=== PATIENT | female | born 1955 | race Caucasian/White ===

== ENCOUNTER 2022-09-20 07:49 | Day surgery (SDC) | payer MEDICARE, OTHER ==
[~2022-09-20 07:49] MED LIST: ALPRAZolam 0.25 MG TAB PO PRN; ALPRAZolam 0.5 MG TAB PO PRN; ASPIRIN 325 MG TAB PO STA; ATORVASTATIN 80 MG TAB PO STA; HEPARIN SODIUM,PORCINE 10,000 UNIT in SODIUM CHLORIDE 0.9% 1,000 ML IRRIGATION PRN; HEPARIN SODIUM,PORCINE 2,500 UNIT in SODIUM CHLORIDE 0.9% 250 ML IRRIGATION PRN; NITROGLYCERIN SL TABS 0.4 MG TAB SUBLINGUAL PRN
[2022-09-20] MEDS ORDERED: SODIUM CHLORIDE 0.9% 1,000 ML IV ONE (08:05)
[2022-09-20] MEDS ORDERED: hydrALAZINE HCL 20 MG/ML 1 ML VIAL ONE ×2 (08:14→10:16)
[2022-09-20] MEDS ORDERED: VERAPAMIL 2.5 MG/ML 2 ML AMP ONE (09:41)
[2022-09-20] MEDS ORDERED: LIDOCAINE 1% INJ 10MG/ML (5 ML VIAL-PF) SQ ONE (09:50)
[2022-09-20] MEDS ORDERED: MIDAZOLAM 2 MG/2 ML VIAL IV ONE (09:51)
[2022-09-20] MEDS ORDERED: VERAPAMIL SYRINGE (5 MG/10 ML) INTRAARTER ONE (09:51)
[2022-09-20] MEDS ORDERED: HEPARIN SODIUM 1,000 UN/ML (10ML VL) ONE (09:52)
[2022-09-20] MEDS: HEPARIN SODIUM 1,000 UN/ML (10ML VL) IV ONE ×3 (09:54→10:19)
[2022-09-20] MEDS ORDERED: fentaNYL (PF) 50 MCG/ML 2 ML AMP ONE (10:01)
[2022-09-20] MEDS: fentaNYL (PF) 50 MCG/ML 2 ML AMP IV ONE ×2 (10:06→10:12)
[2022-09-20] MEDS ORDERED: CLOPIDOGREL 75 MG TAB ONE (10:15)
[2022-09-20] MEDS ORDERED: NITROGLYCERIN 1000MCG/10ML SYRINGE INTRACORON ONE (10:18)
[2022-09-20] MEDS ORDERED: HYDROmorphone 0.5 MG/0.5 ML SYRINGE IVP ONE (10:19)
[2022-09-20] MEDS ORDERED: IOPAMIDOL-370 125ML BTL PO ONE (10:19)
[2022-09-20] MEDS ORDERED: CLOPIDOGREL 75 MG TAB PO ONE (10:19)
[2022-09-20] MEDS ORDERED: ZOLPIDEM 5 MG TAB PO PRN (10:27)
[2022-09-20] MEDS ORDERED: MAG HYDROX/AL HYDROX/SIMETH 30 ML CUP PO PRN (10:27)
[2022-09-20] MEDS ORDERED: RX INFO: IV CONTRAST WAS GIVEN 1 EACH MISC MISCELLANE PRN (10:27)
[2022-09-20] MEDS ORDERED: NITROGLYCERIN SL TABS 0.4 MG TAB SUBLINGUAL PRN (10:27)
[2022-09-20] MEDS ORDERED: ATROPINE SULFATE 0.1 MG/ML 10ML SYRINGE IV PRN (10:27)
[2022-09-20] MEDS ORDERED: SODIUM CHLORIDE 0.9% 1,000 ML in EMPTY BAG 1 BAG IV SCH (10:30)
--- NOTE | 2022-09-20 10:34 | P.PCN ---
Date of Procedure: 09/20/22 Operative Findings: CARDIAC CATHETERIZATION AND PERCUTANEOUS CORONARY INTERVENTION PERFORMING PHYSICIAN: Nigel Salomon MD, VI PROCEDURE PERFORMED: 1. Selective right and left coronary angiogram 2. Successful stenting of proximal LAD using 2.25 x 12 mm Xience JUAN with an excellent angiographic results INDICATION: This is a 67-year-old gentleman with hypertension and dyslipidemia was exp eriencing chest discomfort and underwent a stress test came in to be abnormal. COMPLICATION: None APPROACH: Right radial artery LEVEL OF SEDATION: Moderate with the sedation time off 31 minutes PROCEDURE DESCRIPTION: After obtaining an informed consent the patient was brought to the cardiac home performance laborer. The right radial artery was cannulated using micropuncture technique, the micropuncture wire passed easily then I placed a 6-Kiswahili sheath at the right radial artery. After that I did give the patient 2 mg of verapamil intra- arterial and initially 5000 use of heparin and intravenous and subsequently additional 1000 units of heparin given with continuous ACT monitoring. Selective right and left coronary angiogram performed using JR4 and JL 3.5 catheters. After that I did intervene on the left anterior descending artery SELECTIVE CORONARY ANGIOGRAM: The right coronary artery: Large caliber vessel and a dominant vessel. The RCA is calcified with intermediate lesion involving the midportion appears to be in the range of 30- 40%. Left main: His calcified with mild disease distally appeared to be in the range of 20-30% The left circumflex: Large caliber vessel nondominant vessel. The LCx appears to have [id number] disease mostly involving the first obtuse marginal branch of the left circumflex. The left anterior descending artery: Large caliber vessel. The proximal LAD appeared to have a lesion in the range of 80% by the bifurcation of a septal child nutrition assistant branch. The distal LAD has another lesion appears to be in the range of 80%. The LAD at that point become 2 mm diameter vessel only. The LAD gives rise into a large diagonal branch which appears to have mild disease only. PCI OF THE LAD: Anticoagulation was initiated using heparin with continuous ACT monitoring. I did engage the left main using JL 3.5 guiding catheter. I did wire it using a run-through wire attempting advancing intravascular ultrasound catheter was unsuccessful. Subsequently I did a predilatation using 2 mm balloon before I deployed 2.25 x 12 mm balloon were the balloon was positioned under fluoroscopy guidance and deployed under its nominal pressure. The following angiogram showed excellent angiographic results and the procedure was completed was no complication CONCLUSION: Severe disease involving the proximal LAD. I did perform successful stenting of the proximal LAD. Severe disease involving the apical LAD as well as Mild disease involving the distal left main coronary artery POSTPROCEDURE MANAGEMENT: 1. Dual antiplatelet therapy using aspirin and Plavix for 12 month 2. Aggressive cholesterol control 3. Follow-up with the patient
[2022-09-20] MEDS ORDERED: HYDROcodone/APAP 10-325MG 1 EACH TAB ONE (11:28)
[2022-09-20 14:37] VITALS: BMI 29.5
[2022-09-20] MEDS: SODIUM CHLORIDE 0.9% 1,000 ML in EMPTY BAG 1 BAG IV SCH ×2 (18:03→19:34)
[2022-09-20] MEDS ORDERED: ATORVASTATIN 80 MG TAB PO SCH (21:00)
[2022-09-21 04:49] VITALS: RESP 16
[2022-09-21] MEDS ORDERED: LEVOTHYROXINE 112 MCG TAB PO SCH (06:30)
--- NOTE | 2022-09-21 07:55 | P.DS ---
Providers Attending physician: Nigel Salomon Consults: 09/20/22 10:27 Consult Physician Routine Consulting Provider: [facility] Consult Reason/Comments: Post Interventional Patient Do you want consulting provider notified?: Already Contacted Primary care physician: Dillon Mcknight [place] Hospital Course: The patient is a pleasant 67-year-old female patient was admitted to the hospital yesterday and underwent a heart catheterization and stenting of the left anterior descending artery with a good angiographic results. The patient was seen and evaluated this morning. She is asymptomatic and she is hemodynamically stable beside the pressure being elevated. She is going to be discharged home on dual antiplatelet therapy along with intermediate to high intensity statin and because of her pressure remains elevated and currently on losartan I'm going to add hydrochlorothiazide to the current medical regimen. The patient will be seen in the office in a week. Plan - Discharge Summary Discharge Rx Participant: No New Discharge Prescriptions: New Atorvastatin Calcium [Lipitor] 40 mg PO DAILY #90 tab hydroCHLOROthiazide 25 mg PO DAILY #90 tablet Clopidogrel [Plavix] 75 mg PO DAILY #90 tablet Continue Famotidine [Pepcid] 20 mg PO DAILY Aspirin 81 mg PO DAILY atenoloL [Tenormin] 50 mg PO DAILY Losartan Potassium 100 mg PO DAILY Levothyroxine Sodium [Synthroid] 112 mcg PO DAILY Discharge Medication List Aspirin 81 mg PO DAILY 09/18/22 [History] Famotidine [Pepcid] 20 mg PO DAILY 09/18/22 [History] Levothyroxine Sodium [Synthroid] 112 mcg PO DAILY 09/18/22 [History] Losartan Potassium 100 mg PO DAILY 09/18/22 [History] atenoloL [Tenormin] 50 mg PO DAILY 09/18/22 [History] Atorvastatin Calcium [Lipitor] 40 mg PO DAILY #90 tab 09/21/22 [Rx] Clopidogrel [Plavix] 75 mg PO DAILY #90 tablet 09/21/22 [Rx] hydroCHLOROthiazide 25 mg PO DAILY #90 tablet 09/21/22 [Rx] Follow up Appointment(s)/Referral(s): Nigel Salomon MD [STAFF PHYSICIAN] - 1 Week
[2022-09-21 08:28] VITALS: BP 189/87; PULSE 67; TEMP 98.2
[2022-09-21] MEDS ORDERED: LOSARTAN 50 MG TAB PO SCH (09:00)
[2022-09-21] MEDS ORDERED: CLOPIDOGREL 75 MG TAB PO SCH (09:00)
[2022-09-21] MEDS ORDERED: ASPIRIN 81 MG PO SCH (09:00)
[2022-09-21] MEDS ORDERED: FAMOTIDINE 20 MG TAB PO SCH (09:00)
[2022-09-21] MEDS ORDERED: atenoloL 50 MG TAB PO SCH (09:00)
[2022-09-21 09:38] LABS: African American GFR (CKD) >90 (>60 ml/min/1.73 sqM); Non-African American GFR(CKD) 85 (>60 ml/min/1.73 sqM)
== END 2022-09-21 09:48 | disposition home or self-care (01) ==
LOC: CATHCVL 07:49 → 6NMEDSUR 10:21 → CATHCVL 09-21 09:48
PROVIDERS: ATTEND Internal Medicine Interventional Cardiology
DX: I25.10 Atherosclerotic heart disease of native coronary artery without angina pectoris (principal); R07.89 Other chest pain; I10 Essential (primary) hypertension; E78.5 Hyperlipidemia, unspecified; Z82.49 Family history of ischemic heart disease and other diseases of the circulatory system; Z79.899 Other long term (current) drug therapy
CPT/HCPCS: 93454; 82565; C9600; C1887; C1769 ×2; C1894; C1725; C1753; C1874; J2250; J0360; J2001; J3010; J1644; J1170; Q9967

== ENCOUNTER → 2024-03-09 | Outpatient (CLI) | payer MEDICARE, OTHER ==
[2024-03-09 10:28] LABS: Basophils % (A) 1 %; Eosinophils # (A) 0.1 k/uL (0-0.7); Eosinophils % (A) 1 %; HCT 39.1 % (34.0-46.0); Lymphocytes # (A) 1.4 k/uL (1.0-4.8); Lymphocytes % (A) 22 %; MCH 30.6 pg (25.0-35.0); MCHC 33.1 g/dL (31.0-37.0); MCV 92.5 fL (80.0-100.0); Mean Platelet Volume 7.2; Monocytes # (A) 0.3 k/uL (0-1.0); Monocytes % (A) 5 %; Neutrophils # (A) 4.1 k/uL (1.3-7.7); Neutrophils % (A) 68 %; Platelet Count 293 k/uL (150-450); RBC 4.23 m/uL (3.80-5.40); RDW 13.1 % (11.5-15.5); WBC 6.1 k/uL (3.8-10.6)
[2024-03-09 10:40] LABS: ALT 21 U/L (4-34); AST 23 U/L (14-36); African American GFR (CKD) 76 (>60 ml/min/1.73 sqM); Albumin 4.6 g/dL (3.5-5.0); Albumin/Globulin Ratio 1.6; Alkaline Phosphatase 85 U/L (38-126); Anion Gap 6 mmol/L; Blood Urea Nitrogen 19 mg/dL (7-17); Calcium 8.2 mg/dL (8.4-10.2); Carbon Dioxide 30 mmol/L (22-30); Chloride 102 mmol/L (98-107); Creatine Kinase 145 U/L (30-135); Globulin 2.9 g/dL; Glucose 97 mg/dL (74-99); Non-African American GFR(CKD) 66 (>60 ml/min/1.73 sqM); Potassium 3.8 mmol/L (3.5-5.1); Sodium 138 mmol/L (137-145); Total Bilirubin 0.9 mg/dL (0.2-1.3); Total Protein 7.5 g/dL (6.3-8.2)
[2024-03-09 10:58] LABS: T4, Free (Free Thyroxine) 1.36 ng/dL (0.78-2.19)
--- NOTE | 2024-03-09 12:21 | CT ---
EXAMINATION TYPE: CT abdomen pelvis w con CT DLP: 947.60 mGycm, Automated exposure control for dose reduction was used. DATE OF EXAM: 03/09/2024 12:06 PM COMPARISON: CT abdomen pelvis most recent from . CLINICAL INDICATION:Female, 68 years old with history of R10.31 RIGHT LOWER QUADRANT PAIN; RIGHT LOWE R QUADRANT PAIN TECHNIQUE: Standard CT of the abdomen and pelvis following the administration of 100 cc of Isovue 3 00 IV contrast material and oral contrast. Coronal and sagittal reformats were performed. FINDINGS: LOWER CHEST: Linear scarring or atelectasis within the left lower lobe. Adjacent right lower lobe 5 m m nodular density (series 5, image 13) and 4 mm nodular density (series 5, image 15). Median sternoto my wire. ABDOMEN LIVER: Unremarkable GALLBLADDER AND BILE DUCTS: Unremarkable. PANCREAS: Unremarkable. SPLEEN: Unremarkable. ADRENAL GLANDS: Unremarkable. KIDNEYS AND URETERS: No evidence of hydronephrosis or renal calculus. The kidneys enhance symmetrical ly. Contrast is demonstrated within both collecting systems on the delayed phase. PELVIS BLADDER: Incompletely distended but grossly unremarkable. REPRODUCTIVE: The uterus is surgically absent. ABDOMEN & PELVIS STOMACH AND BOWEL: Stomach and duodenum are unremarkable. Pancolonic diverticulosis without surroundi ng inflammatory changes. The appendix is within normal limits. Enteric contrast reaches the rectum. N o evidence of bowel obstruction. PERITONEUM: No evidence of pneumoperitoneum or free fluid. VASCULATURE: Mild atherosclerotic calcifications are present throughout the abdominal aorta and its b ranches. No evidence of aortic aneurysm. MUSCULOSKELETAL: No acute osseous abnormalities. Dextrocurvature of the thoracolumbar spine. Moderate multilevel degenerative disc disease. Probable DISH of the lower thoracic spine. LYMPH NODES: No gross evidence for lymphadenopathy. SOFT TISSUE/ABDOMINAL WALL: Unremarkable IMPRESSION: 1. No acute abdominal/pelvic process. 2. Pancolonic diverticulosis without evidence for acute diverticulitis. 3. Couple of pulmonary nodular densities within the right lower lobe. In a low-risk patient, no follo w-up is recommended. In a high-risk patient consider optional CT chest in 12 months. [facility], , 03/09/2024 12:18 PM
[2024-03-09 15:38] LABS: Chol/HDL Ratio 3.63 Ratio; LDL Cholesterol,Calculated 121.7 mg/dL (0.0-131.0)
== END ==
LOC: RADCTMAIN 09:51
PROVIDERS: ATTEND Family Medicine
CPT/HCPCS: 36415; 74177; 80053; 80061; 82550; 83036; 84439; 84443; 85025

== ENCOUNTER 2024-03-14 04:08 | Emergency (ER) | payer MEDICARE, OTHER ==
[2024-03-14 04:13] VITALS: RESP 18; TEMP 97.9
[2024-03-14 04:38] LABS: Basophils # (A) 0.1 k/uL (0-0.2); Basophils % (A) 1 %; Eosinophils # (A) 0.2 k/uL (0-0.7); Eosinophils % (A) 3 %; HCT 36.5 % (34.0-46.0); HGB 12.7 gm/dL (11.4-16.0); Lymphocytes # (A) 2.4 k/uL (1.0-4.8); Lymphocytes % (A) 31 %; MCH 30.8 pg (25.0-35.0); MCHC 34.8 g/dL (31.0-37.0); MCV 88.7 fL (80.0-100.0); Mean Platelet Volume 7.7; Monocytes # (A) 0.4 k/uL (0-1.0); Monocytes % (A) 5 %; Neutrophils # (A) 4.5 k/uL (1.3-7.7); Neutrophils % (A) 58 %; Platelet Count 282 k/uL (150-450); RBC 4.12 m/uL (3.80-5.40); RDW 13.5 % (11.5-15.5); WBC 7.8 k/uL (3.8-10.6)
[2024-03-14 04:50] LABS: ALT 19 U/L (4-34); AST 19 U/L (14-36); African American GFR (CKD) 65 (>60 ml/min/1.73 sqM); Albumin 4.2 g/dL (3.5-5.0); Alkaline Phosphatase 68 U/L (38-126); Amylase 38 U/L (30-110); Anion Gap 8 mmol/L; Blood Urea Nitrogen 20 mg/dL (7-17); Calcium 7.6 mg/dL (8.4-10.2); Carbon Dioxide 32 mmol/L (22-30); Chloride 99 mmol/L (98-107); Glucose 106 mg/dL (74-99); Lipase 99 U/L (23-300); Non-African American GFR(CKD) 56 (>60 ml/min/1.73 sqM); Potassium 3.3 mmol/L (3.5-5.1); Sodium 139 mmol/L (137-145); Total Bilirubin 0.6 mg/dL (0.2-1.3)
[2024-03-14 05:23] LABS: Appearance,Urine Clear (Clear); Bacteria,Urine Rare /hpf; Bilirubin,Urine Negative (Negative); Blood,Urine Negative (Negative); Budding Yeast,Urine Rare /hpf; Color,Urine Colorless; Glucose,Urine (UA) Negative (Negative); Hyaline Casts,Urine 1 /lpf (0-2); Ketones,Urine Negative (Negative); Leukocyte Esterase,Urine Small (Negative); Mucus,Urine Rare /hpf; Nitrite,Urine Negative (Negative); PH, Urine 5.5 (5.0-8.0); Protein,Urine Negative (Negative); RBC,Urine 1 /hpf (0-5); Specific Gravity,Urine 1.017 (1.001-1.035); Squamous Epithelial Cell,Urine 3 /hpf (0-4); Urobilinogen,Urine <2.0 mg/dL (<2.0); WBC,Urine 2 /hpf (0-5)
--- NOTE | 2024-03-14 06:32 | ED ---
Abdominal Pain HPI - General Chief Complaint: Abdominal Pain Stated Complaint: abd pain Time Seen by Provider: 03/14/24 04:21 Source: patient, RN notes reviewed Mode of arrival: ambulatory Limitations: no limitations - History of Present Illness Initial Comments: This is a 68-year-old female presents emergency department chief complaint of right sided abdominal pain over the past week and a half. States that she was evaluated by her primary care provider this past 03/09/24, where a CT image was ordered in addition to labs that were unremarkable. States that pain has been persisting since this time. She denies nausea, vomiting, fevers, c hills, diarrhea, urinary complaints. denies previous surgical abdominal history. Denies chest pain, shortness of breath, difficulty breathing. - Related Data Home Medications Medication Instructions Recorded Confirmed Aspirin 81 mg PO DAILY 09/18/22 09/20/22 Famotidine [Pepcid] 20 mg PO DAILY 09/18/22 09/20/22 Levothyroxine Sodium [Synthroid] 112 mcg PO DAILY 09/18/22 09/20/22 Losartan Potassium 100 mg PO DAILY 09/18/22 09/20/22 atenoloL [Tenormin] 50 mg PO DAILY 09/18/22 09/20/22 Previous Rx's Medication Instructions Recorded Atorvastatin Calcium [Lipitor] 40 mg PO DAILY #90 tab 09/21/22 Clopidogrel [Plavix] 75 mg PO DAILY #90 tablet 09/21/22 hydroCHLOROthiazide 25 mg PO DAILY #90 tablet 09/21/22 Allergies Allergy/AdvReac Type Severity Reaction Status Date / Time doxycycline Allergy Rash/Hives Verified 03/14/24 04:13 latex Allergy Swelling Verified 03/14/24 04:13 Penicillins Allergy Rash/Hives Verified 03/14/24 04:13 Sulfa (Sulfonamide Allergy Rash/Hives Verified 03/14/24 04:13 Antibiotics) Review of Systems ROS Statement: Those systems with pertinent positive or pertinent negative responses have been documented in the HPI. ROS Other: All systems not noted in ROS Statement are negative. Past Medical History Past Medical History: Cancer, Chest Pain / Angina, Deep Vein Thrombosis (DVT), GERD/Reflux, Hyperlipidemia, Hypertension, Osteoarthritis (OA), Sleep Apnea/CPAP/BIPAP, Thyroid Disorder Additional Past Medical History / Comment(s): recent stress ECHO. recent chest discomfort and SOB mild per pt, sinus drainage. thyroid cancer 2010, mild sleep apnea does not have machine. blood clot in lung after heart surgery was on blood thinners for short time but is not now. surgery was years ago. History of Any Multi-Drug Resistant Organisms: None Reported Past Surgical History: Heart Catheterization With Stent, Hysterectomy Additional Past Surgical History / Comment(s): thyroid removed, hole in heart repaired 29 years ago. left leg and ankle surgery 2011. colonoscopy. teeth extraction. worked up for foot surgery recently not done yet Past Anesthesia/Blood Transfusion Reactions: Postoperative Nausea & Vomiting (PONV) Additional Past Anesthesia/Blood Transfusion Reaction / Comment(s): vomiting after heart surgery. no issues since. Past Psychological History: Anxiety Smoking Status: Never smoker Past Alcohol Use History: Rare Past Drug Use History: Marijuana - Past Family History Father Family Medical History: Coronary Artery Disease (CAD), Myocardial Infarction (MA) Additional Family Medical History / Comment(s): pacemaker. bypass surgery Mother Family Medical History: CVA/TIA Additional Family Medical History / Comment(s): blood clots from control. Brother(s) Family Medical History: Cancer General Exam - General Exam Comments Initial Comments: Visual Physical Exam Vital signs reviewed General: Well-appearing, nontoxic, no acute distress. Head: Normocephalic, atraumatic Eyes: PERRLA, EOMI ENT: Airway patent Chest: Nonlabored breathing Skin: No visual rash, normal skin tone Neuro: Alert and oriented 3 Musculoskeletal: No gross abnormalities Limitations: no limitations General appearance: alert, in no apparent distress Eye exam: Present: normal appearance, PERRL, EOMI. Absent: scleral icterus, conjunctival injection, periorbital swelling ENT exam: Present: normal exam, mucous membranes moist Neck exam: Present: normal inspection. Absent: tenderness, meningismus, lymphadenopathy Respiratory exam: Present: normal lung sounds bilaterally. Absent: respiratory distress, wheezes, rales, rhonchi, stridor Cardiovascular Exam: Present: regular rate, normal rhythm, normal heart sounds. Absent: systolic murmur, diastolic murmur, rubs, gallop, clicks GI/Abdominal exam: Present: soft, tenderness (RLQ, RUQ), normal bowel sounds. Absent: distended, guarding, rebound, rigid Extremities exam: Present: normal inspection, full ROM, normal capillary refill. Absent: tenderness, pedal edema, joint swelling, calf tenderness Back exam: Present: normal inspection Skin exam: Present: warm, dry, intact, normal color. Absent: rash Course Vital Signs 03/14/24 04:11 Temperature 97.9 F Pulse Rate 70 Respiratory 18 Rate Blood Pressure 179/84 O2 Sat by Pulse 96 Oximetry Medical Decision Making - Medical Decision Making Was pt. sent in by a medical professional or institution (, PA, PRIVATE INQUIRY AGENT, urgent care, hospital, or halfway...) When possible be specific @ -No Did you speak to anyone other than the patient for history (EMS, parent, family, police, friend...)? What history was obtained from this source @ -No Did you review nursing and triage notes (agree or disagree)? Why? @ -I reviewed and agree with nursing and triage notes Were old charts reviewed (outside hosp., previous admission, EMS record, old EKG, old radiological studies, urgent care reports/EKG's, halfway records)? Report findings @Reviewed patient's previous CT imaging of the abdomen that was completed earlier this week that revealed no acute intra-abdominal process. Differential Diagnosis (chest pain, altered mental status, abdominal pain women, abdominal pain men, vaginal bleeding, weakness, fever, dyspnea, syncope, headache, dizziness, GI bleed, back pain, seizure, CVA, palpatations, mental health, musculoskeletal)? @ -Differential Abdominal Pain Women: Appendicitis, Cholecystitis, diverticulosis, ischemic bowel, pancreatitis, hepatitis, UTI, gastroenteritis, AAA, incarcerated hernia, bowel obstruction, constipation, inflammatory bowel, hepatitis, peptic ulcer disease, splenic infarction, perforated viscus, vulvitis, ovarian torsion, PID, kidney stone, placenta abruption, this is not meant to be an all-inclusive list EKG interpreted by me (3pts min.). @ -None X-rays interpreted by me (1pt min.). @ -None done CT interpreted by me (1pt min.). @ -CT of the abdomen pelvis with contrast unremarkable for acute process. U/S interpreted by me (1pt. min.). @ -Ultrasound of the right upper quadrant reveals no evidence of gallstones, no bladder wall thickening or pericholecystic fluid or distention with a positive sonographic Carrasco sign and mild hepatic steatosis What testing was considered but not performed or refused? (CT, X-rays, U/S, labs)? Why? @ -None What meds were considered but not given or refused? Why? @ -None Did you discuss the management of the patient with other professionals (professionals i.e. , PA, PRIVATE INQUIRY AGENT, lab, RT, psych nurse, social science teacher, marketing proposal specialist, teacher, fiscal officer, case sealer)? Give summary @ -No Was smoking cessation discussed for >3mins.? @ -No Was critical care preformed (if so, how long)? @ -No Were there social determinants of health that impacted care today? How? (Homelessness, low income, unemployed, alcoholism, drug addiction, transportation, low edu. Level, literacy, decrease access to med. care, residential, rehab)? @ -No Was there de-escalation of care discussed even if they declined (Discuss DNR or withdrawal of care, Hospice)? DNR status @ -No What co-morbidities impacted this encounter? (DM, HTN, Smoking, COPD, CAD, Cancer, CVA, ARF, Chemo, Hep., AIDS, mental health diagnosis, sleep apnea, morbid obesity)? @ -None Was patient admitted / discharged? Hospital course, mention meds given and route, prescriptions, significant lab abnormalities, going to OR and other pertinent info. @ -Discharge. 68-year-old female with abdominal pain. On my evaluation patient she is resting comfortably no signs acute distress. She is noted to have right- sided abdominal pain to palpation with tenderness to the right upper quadrant and right lower quadrant. Bowel sounds are equal for all quadrants. Vitals are stable. Patient had a CT image of the abdomen on Friday however she is having persistent right lower quadrant abdominal pain with concern for appendicitis and she is sent for repeat imaging. Patient is agreement with repeat imaging. Additionally she will be evaluated via urinalysis and laboratory studies. Labs remarkable for mild hypokalemia with a potassium of 3.3, CBC unremarkable, urinalysis no signs of infection. CT unremarkable. Discussed with patient at bedside that CT has been unremarkable and she states that she would like to undergo ultrasound of the gallbladder for further evaluation as well. This is also resulted negative. Recommend the patient follows up with her primary care provider this week for further evaluation for potential HIDA scan for continued right upper quadrant abdominal pain with radiation into her back. She is stable for discharge at this time. All questions answered at bedside and strict return parameters have been discussed with the patient she is verbalized understanding. case discussed with my attending, Dr. Mart Undiagnosed new problem with uncertain prognosis? @ -No Drug Therapy requiring intensive monitoring for toxicity (Heparin, Nitro, Insulin, Cardizem)? @ -No Were any procedures done? @ -No Diagnosis/symptom? @ -unspecified abdominal pain Acute, or Chronic, or Acute on Chronic? @ -acute Uncomplicated (without systemic symptoms) or Complicated (systemic symptoms)? @ -uncomplicated Side effects of treatment? @ -No Exacerbation, Progression, or Severe Exacerbation? @ -No Poses a threat to life or bodily function? How? (Chest pain, USA, MA, pneumonia, PE, COPD, DKA, ARF, appy, cholecystitis, CVA, Diverticulitis, Homicidal, Suicidal, threat to staff... and all critical care pts) @ -No - Lab Data Result diagrams: 03/14/24 04:20 03/14/24 04:20 Lab Results 03/14/24 03/14/24 03/14/24 Range/Units 04:20 04:20 04:20 WBC 7.8 (3.8-10.6) k/uL RBC 4.12 (3.80-5.40) m/uL Hgb 12.7 (11.4-16.0) gm/dL Hct 36.5 (34.0-46.0) % MCV 88.7 (80.0-100.0) fL MCH 30.8 (25.0-35.0) pg MCHC 34.8 (31.0-37.0) g/dL RDW 13.5 (11.5-15.5) % Plt Count 282 (150-450) k/uL MPV 7.7 Neutrophils % 58 % Lymphocytes % 31 % Monocytes % 5 % Eosinophils % 3 % Basophils % 1 % Neutrophils # 4.5 (1.3-7.7) k/uL Lymphocytes # 2.4 (1.0-4.8) k/uL Monocytes # 0.4 (0-1.0) k/uL Eosinophils # 0.2 (0-0.7) k/uL Basophils # 0.1 (0-0.2) k/uL Sodium 139 (137-145) mmol/L Potassium 3.3 L (3.5-5.1) mmol/L Chloride 99 (98-107) mmol/L Carbon Dioxide 32 H (22-30) mmol/L Anion Gap 8 mmol/L BUN 20 H (7-17) mg/dL Creatinine 1.03 (0.52-1.04) mg/dL Est GFR (CKD-EPI)AfAm 65 (>60 ml/min/1.73 sqM) Est GFR (CKD-EPI)NonAf 56 (>60 ml/min/1.73 sqM) Glucose 106 H (74-99) mg/dL Plasma Lactic Acid Cristobal 1.6 (0.7-2.0) mmol/L Calcium 7.6 L (8.4-10.2) mg/dL Total Bilirubin 0.6 (0.2-1.3) mg/dL AST 19 (14-36) U/L ALT 19 (4-34) U/L Alkaline Phosphatase 68 (38-126) U/L Total Protein 7.0 (6.3-8.2) g/dL Albumin 4.2 (3.5-5.0) g/dL Amylase 38 (30-110) U/L Lipase 99 (23-300) U/L Urine Color Urine Appearance (Clear) Urine pH (5.0-8.0) Ur Specific [place] (1.001-1.035) Urine Protein (Negative) Urine Glucose (UA) (Negative) Urine Ketones (Negative) Urine Blood (Negative) Urine Nitrite (Negative) Urine Bilirubin (Negative) Urine Urobilinogen (<2.0) mg/dL Ur Leukocyte Esterase (Negative) Urine RBC (0-5) /hpf Urine WBC (0-5) /hpf Ur Squamous Epith Cells (0-4) /hpf Urine Bacteria (None) /hpf Hyaline Casts (0-2) /lpf Urine Mucus (None) /hpf Urine Yeast (Budding) (None) /hpf 03/14/24 Range/Units 04:46 WBC (3.8-10.6) k/uL RBC (3.80-5.40) m/uL Hgb (11.4-16.0) gm/dL Hct (34.0-46.0) % MCV (80.0-100.0) fL MCH (25.0-35.0) pg MCHC (31.0-37.0) g/dL RDW (11.5-15.5) % Plt Count (150-450) k/uL MPV Neutrophils % % Lymphocytes % % Monocytes % % Eosinophils % % Basophils % % Neutrophils # (1.3-7.7) k/uL Lymphocytes # (1.0-4.8) k/uL Monocytes # (0-1.0) k/uL Eosinophils # (0-0.7) k/uL Basophils # (0-0.2) k/uL Sodium (137-145) mmol/L Potassium (3.5-5.1) mmol/L Chloride (98-107) mmol/L Carbon Dioxide (22-30) mmol/L Anion Gap mmol/L BUN (7-17) mg/dL Creatinine (0.52-1.04) mg/dL Est GFR (CKD-EPI)AfAm (>60 ml/min/1.73 sqM) Est GFR (CKD-EPI)NonAf (>60 ml/min/1.73 sqM) Glucose (74-99) mg/dL Plasma Lactic Acid Cristobal (0.7-2.0) mmol/L Calcium (8.4-10.2) mg/dL Total Bilirubin (0.2-1.3) mg/dL AST (14-36) U/L ALT (4-34) U/L Alkaline Phosphatase (38-126) U/L Total Protein (6.3-8.2) g/dL Albumin (3.5-5.0) g/dL Amylase (30-110) U/L Lipase (23-300) U/L Urine Color Colorless Urine Appearance Clear (Clear) Urine pH 5.5 (5.0-8.0) Ur Specific [place] 1.017 (1.001-1.035) Urine Protein Negative (Negative) Urine Glucose (UA) Negative (Negative) Urine Ketones Negative (Negative) Urine Blood Negative (Negative) Urine Nitrite Negative (Negative) Urine Bilirubin Negative (Negative) Urine Urobilinogen <2.0 (<2.0) mg/dL Ur Leukocyte Esterase Small H (Negative) Urine RBC 1 (0-5) /hpf Urine WBC 2 (0-5) /hpf Ur Squamous Epith Cells 3 (0-4) /hpf Urine Bacteria Rare H (None) /hpf Hyaline Casts 1 (0-2) /lpf Urine Mucus Rare H (None) /hpf Urine Yeast (Budding) Rare H (None) /hpf Disposition Clinical Impression: Unspecified abdominal pain, Right upper quadrant abdominal pain Disposition: HOME SELF-CARE Condition: Stable Instructions (If sedation given, give patient instructions): Abdominal Pain (ED) Additional Instructions: Please return to the Emergency Department if symptoms worsen or any other concerns. Recommend that you follow-up with your primary care provider homa gonsales for further evaluation. Is patient prescribed a controlled substance at d/c from ED?: No Referrals: Dillon Stone MD [Primary Care Provider] - 1-2 days Time of Disposition: 10:17
--- NOTE | 2024-03-14 07:26 | CT ---
EXAMINATION TYPE: CT abdomen pelvis w con DATE OF EXAM: 03/14/2024 COMPARISON: 03/09/2024 HISTORY: RT SIDE ABDOMINAL PAIN THAT HAS INCREASED COMPARE TO SCAN ON 03/09 CT DLP: 1011.4 mGycm Automated exposure control for dose reduction was used. TECHNIQUE: Helical acquisition of images was performed from the lung bases through the pelvis. CONTRAST: Performed without Oral Contrast and with IV Contrast, patient injected with 80 mL of Isovue 300. FINDINGS: The lung bases are clear. The gallbladder is normal without distention, wall thickening, pericholecystic fluid or gallstones. T here is no biliary ductal dilatation. There is no focal mass or organomegaly involving the liver, pancreas, spleen or adrenal glands. There is no solid renal mass or hydronephrosis and there is homogeneous contrast enhancement of the r enal parenchyma. The caliber the abdominal aorta is normal is no retroperitoneal adenopathy or hemorr ca. The bowel loops are normal in caliber and there is no evidence of dilatation or obstruction. No infla mmatory changes are identified in the bowel wall or mesentery. There is moderate diverticulosis but n o CT evidence of acute diverticulitis. There is no free intraperitoneal air or fluid. No pelvic mass, free fluid, abscess or adenopathy. The osseous structures and soft tissues are intact. IMPRESSION: No acute changes within the abdomen or pelvis. No change compared to the prior study dated 03/09/2024 [facility], Workstation: [email or web address] [id number], 03/14/2024 7:23 AM
[2024-03-14] MEDS: POTASSIUM CHLORIDE ER 20 MEQ TAB.ER PO STA (08:29)
--- NOTE | 2024-03-14 10:10 | US ---
EXAMINATION TYPE: US gallbladder DATE OF EXAM: 03/14/2024 COMPARISON: CT same day CLINICAL INDICATION: Female, 68 years old with history of RUQ ab pain; RUQ and back pain TECHNIQUE: Grayscale and color Doppler imaging of the right upper quadrant was performed. FINDINGS: EXAM MEASUREMENTS: Liver Length: 14.8 cm Gallbladder Wall: 0.3 cm CBD: 0.5 cm Right Kidney: 8.5 x 4.6 x 5.3 cm Pancreas: visualized portions wnl, limited by overlying bowel gas Liver: attenuating, course echotexture Gallbladder: wnl Evidence for sonographic Carrasco's sign: yes CBD: wnl Right Kidney: wnl IMPRESSION: 1. No gallstones, no bladder wall thickening , pericholecystic fluid or distention 2. Sonographic Carrasco sign is reported as positive 3. Mild hepatic steatosis [facility], Workstation: [facility], 03/14/2024 10:08 AM
[2024-03-14 11:29] VITALS: BP 178/94; PULSE 78
== END 2024-03-14 11:28 | disposition home or self-care (01) ==
LOC: EC 04:08
CPT/HCPCS: 36415; 74177; 76705; 80053; 81001; 82150; 83605; 83690; 85025; 99284